=== PATIENT | male | born 2000 | race Caucasian/White ===

== ENCOUNTER 2019-10-11 10:03 | Inpatient (IN) ==
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
--- NOTE | 2019-10-10 08:23 | Anesthesiology Consultation ---
Date of Service October 10, 2019 Assessment & Plan (1) Encounter for pre-operative examination: CHECK CBC AM DOS Chart Review Chart Review: Acceptable Risk for Surgery and Patient NOT seen in Pre Admission Testing History Surgery Operation Date: 10/11/19 12:30 Proposed Procedures p Right Knee Lateral Tibial Plateau Fracture Open Reduction Internal Fixation - Gray Henry MD Height/Weight Height: 5 ft 10 in Weight: 72.575 kg Allergies Allergy/AdvReac Type Severity Reaction Status Date / Time No Known Allergies Allergy Mild Verified 10/09/19 16:25 Medications Home Medications Medication Instructions Recorded Confirmed Last Taken ascorbic acid (vitamin C) [Vitamin 250 mg PO DAILY 09/29/19 10/09/19 09/28/19 1 7:30 C] acetaminophen 500 mg PO Q6H PRN 10/09/19 10/09/19 Unknown ibuprofen 200 - 400 mg PO UD PRN 10/09/19 10/09/19 Unknown Past Medical History Medical History No known health problems Past Family History Family History Other No family history of adverse response to anesthesia No significant family history Past Surgical History Surgical History History of esophagogastroduodenoscopy (EGD) History of tonsillectomy Social History Smoking Status: Never smoker Hx Alcohol Use: No Hx Substance Use: No substance use type: does not use
[~2019-10-11 10:03] MED LIST: BUPIVACAINE 0.5 % 5 MG/1 ML PF 10ML VIAL ONE; BUPIVACAINE/EPINEPHRINE 0.25% 1:200,000 30 ML VIAL ONE; CEFAZOLIN 2000MG 2,000 MG/15 ML SYR IV SCH; DEXAMETHASONE SOD INJ 4 MG/ML VIAL ONE; LR 15ML/HR IV SCH
[2019-10-11 10:36] LABS: Hematocrit (blood only) 47.1 % (42-52); Hemoglobin 16.6 g/dL (14.0-18.0); Mean Corpuscular Hemoglobin 33.1 pg (25-34); Mean Corpuscular Volume 93.8 fL (80-100); Mean Platelet Volume 10.4 fL (7.4-10.4); Platelet Count 286 K/uL (130-400); RDW Coefficient of Variation 12.1 % (11.5-14.5); RDW Standard Deviation 40.8 fL (36.4-46.3); Red Blood Count 5.02 M/uL (4.7-6.1); White Blood Count 6.19 K/uL (4.8-10.8)
[2019-10-11 10:39] LABS: Mean Corpuscular Hgb Conc 35.2 g/dL (32-36)
[2019-10-11] MEDS ORDERED: LIDOCAINE HCL 2% 2 ML VIAL/AMP(20MG/ML) INFIL ONE (10:47)
[2019-10-11] MEDS ORDERED: fentaNYL citrate 100 MCG/2 ML VIAL ONE (10:47)
[2019-10-11] MEDS ORDERED: PROPOFOL IV EMULSION 10 MG/ML 20 ML VIAL IV ONE (10:47)
[2019-10-11] MEDS ORDERED: DEXAMETHASONE SOD INJ 4 MG/ML VIAL ONE (10:47)
[2019-10-11] MEDS ORDERED: ONDANSETRON INJ 2 MG/ML 2 ML VIAL ONE ×2 (10:47→17:35)
[2019-10-11] MEDS ORDERED: MIDAZOLAM HCL 1 MG/ML 2ML VIAL ONE ×2 (10:47→12:00)
--- NOTE | 2019-10-11 11:57 | History & Physical Bridge Note ---
Date of Service October 11, 2019 History & Physical Bridge Note I have examined the patient, reviewed the History & Physical and in the interval since the performance of the History & Physical I have noted the following changes of clinical significance: no changes noted
[2019-10-11] MEDS ORDERED: BUPIVACAINE/EPINEPHRINE 0.5% MPF 1:200,000 10 ML VIAL ONE (12:34)
[2019-10-11] MEDS ORDERED: PROMETHAZINE HCL 6.25 MG in SODIUM CHLORIDE 0.9% 50 ML IV PRN (12:44)
[2019-10-11] MEDS ORDERED: ATROPINE SULFATE 0.1 MG/ML 10ML SYR IV PRN (12:44)
[2019-10-11] MEDS ORDERED: ePHEDrine sulfate 50 MG/ML AMP IV PRN (12:44)
[2019-10-11] MEDS ORDERED: fentaNYL citrate 100 MCG/2 ML VIAL IV PRN (12:44)
[2019-10-11] MEDS ORDERED: ONDANSETRON INJ 2 MG/ML 2 ML VIAL IV PRN ×2 (12:44→17:05)
[2019-10-11] MEDS ORDERED: HYDROmorphone INJ 2 MG/ML SYR/VIAL IV PRN (12:44)
[2019-10-11] MEDS ORDERED: HYDROmorphone INJ 2 MG/ML SYR/VIAL ONE (12:57)
[2019-10-11] MEDS ORDERED: KETAMINE HCL INJ 50 MG/ML 10 ML VIAL ONE (12:58)
[2019-10-11] MEDS ORDERED: ACETAMINOPHEN 1000 MG/100 ML IV IV ONE (13:01)
[2019-10-11] MEDS ORDERED: DexMEDEtomidine HCL IV 100 MCG/ML VIAL ONE (13:01)
--- NOTE | 2019-10-11 14:38 | Fluoroscopy Report ---
FL knee RT 1 or 2V CLINICAL HISTORY: RT ORIF TIBIAL PLATEAU COMPARISON STUDY: 10/09/2019 FLUOROSCOPY TIME: 3 minutes 23 seconds NUMBER OF FLUOROSCOPIC IMAGES: 2 FINDINGS: Image intensifier support for open reduction internal fixation of the proximal tibia. Multi ple orthogonal screws as well as linear plate are present. IMPRESSION: Image intensifier support for open reduction internal fixation of the right knee. ACT 112: Negative or not required by law. The above report was generated using voice recognition software. It may contain grammatical, syntax or spelling errors. Electronically signed by: Humberto Granda M.D. 10/11/2019 2:37 PM
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
--- NOTE | 2019-10-11 15:47 | Anesthesiology Progress Note ---
Date of Service October 11, 2019 Anesthesia Post Procedure Vital Signs Vital Signs: Temp Pulse Resp BP Pulse Ox 10/11/19 15:45 61 12 135/90 100 10/11/19 15:35 36.8 C 94 H 12 141/94 H 100 10/11/19 15:25 110 H 12 132/85 100 10/11/19 15:15 70 10 L 133/74 99 10/11/19 15:05 74 10 L 138/61 98 10/11/19 14:56 36.4 C L 68 14 134/74 98 10/11/19 10:34 36.7 C 91 H 18 119/84 98 Pain Intensity Right Knee: Pain Intensity: 0 Transfer of Care Handoff Completed per policy Notes Mental Status: alert / awake / arousable and participated in evaluation Patient Amnestic to Procedure: Yes Nausea / Vomiting: adequately controlled Pain: adequately controlled Airway Patency, RR, SpO2: stable & adequate BP & HR: stable & adequate Hydration State: stable & adequate Anesthetic Complications: no major complications apparent
[2019-10-11] MEDS ORDERED: bisacodyL 10 MG SUPP PR PRN (17:05)
[2019-10-11] MEDS ORDERED: NALOXONE HCL 0.4 MG/1 ML VIAL/CARP IV PRN (17:05)
[2019-10-11] MEDS ORDERED: METOCLOPRAMIDE HCL INJ 5 MG/ML 2 ML VIAL IV PRN (17:05)
[2019-10-11] MEDS ORDERED: MAGNESIUM HYDROXIDE SUSP 30 ML UDC PO PRN (17:05)
[2019-10-11] MEDS ORDERED: HYDROmorphone INJ 0.5 MG/0.5 ML SYR IV PRN (17:05)
[2019-10-11] MEDS: SODIUM CHLORIDE 0.9% 1000ML 1,000 ML IV SCH (18:41)
[2019-10-11] MEDS ORDERED: SENNA 8.6 MG TAB PO SCH (21:00)
[2019-10-11] MEDS: CEFAZOLIN 1000MG 1,000 MG/7.5 ML SYR IV SCH (21:07)
[2019-10-11] MEDS: DOCUSATE SODIUM 100 MG CAP PO SCH (21:08)
[2019-10-11] MEDS: ASPIRIN 81 MG ECTAB PO SCH (21:08)
[2019-10-11] MEDS: ACETAMINOPHEN 500 MG TAB PO SCH (21:08)
[2019-10-11] MEDS: OXYCODONE HCL IR 5 MG TAB (IMMEDIATE RELEASE) PO PRN (23:37)
[2019-10-12] MEDS: SODIUM CHLORIDE 0.9% 1000ML 1,000 ML IV SCH (03:16)
[2019-10-12] MEDS: CEFAZOLIN 1000MG 1,000 MG/7.5 ML SYR IV SCH (04:51)
[2019-10-12] MEDS: ACETAMINOPHEN 500 MG TAB PO SCH (04:51)
[2019-10-12] MEDS: OXYCODONE HCL IR 5 MG TAB (IMMEDIATE RELEASE) PO PRN ×2 (04:55→09:08)
--- NOTE | 2019-10-12 07:02 | Orthopedic Progress Note ---
Date of Service October 12, 2019 Assessment & Plan (1) Closed fracture of lateral portion of right tibial plateau: POD#1 ORIF lateral tibial plateau fracture, right leg -Pain management - RLE, brace in extension/immobilizer at all times -DVT prophylaxis-ASA 81mg BID x 1 mo -D/C planning-home likely today. -AM labs are pending. Admission and Anticipated Discharge Date Admission Date: October 11, 2019 Anticipated date of discharge: 10/12/19 Subjective Patient is POD#1 ORIF lateral tibial plateau fracture. He was sleeping on arrival, easily awoken. Complaint of pain this morning, controlled. Hoping to go home today. No other complaints. Review of Systems Review of Systems: All systems reviewed & are unremarkable except as noted in HPI & below Physical Exam Physical Exam: Patient is resting in bed comfortably, AAOx3. Dressing is c/d/i, immobilizer in place. Toes are mobile, good doriflexion. Calves are soft and non tender. Distal pulses palpable. N/v status and sensation intact. Constitutional: well developed and well nourished; no acute distress Results & Data ([facility]) Vital Signs (Past 12 Hours) Vital Signs Temp Pulse Pulse Resp BP BP Pulse Ox 10/12/19 02:46 37.1 C 68 14 135/71 96 10/11/19 22:54 37.3 C 71 14 150/92 H 98 10/11/19 20:01 36.7 C 66 16 127/72 99 (1) Closed fracture of lateral portion of right tibial plateau Encounter type: subsequent encounter Fracture healing: with routine healing Qualified Code(s): S82.121D - Displaced fracture of lateral condyle of right tibia, subsequent encounter for closed fracture with routine healing
[2019-10-12 07:52] LABS: Hematocrit (blood only) 38.5 % (42-52); Hemoglobin 13.4 g/dL (14.0-18.0); Mean Corpuscular Hemoglobin 32.6 pg (25-34); Mean Corpuscular Hgb Conc 34.8 g/dL (32-36); Mean Corpuscular Volume 93.7 fL (80-100); Mean Platelet Volume 10.4 fL (7.4-10.4); Platelet Count 240 K/uL (130-400); RDW Coefficient of Variation 11.9 % (11.5-14.5); RDW Standard Deviation 40.5 fL (36.4-46.3); Red Blood Count 4.11 M/uL (4.7-6.1)
[2019-10-12 08:24] LABS: BUN Creatinine Ratio 11.1 (10-20); Blood Urea Nitrogen 8 mg/dl (7-18); Calcium 9.1 mg/dl (8.5-10.1); Carbon Dioxide 28 mmol/L (21-32); Chloride 105 mmol/L (98-107); Est GFR (African American) > 150.0; Est GFR (Non-African American) 133.7; Glucose 104 mg/dl (70-99); Potassium 3.6 mmol/L (3.5-5.1); Sodium 137 mmol/L (136-145)
[2019-10-12] MEDS ORDERED: MULTIVITAMIN TAB PO SCH (09:00)
[2019-10-12] MEDS ORDERED: ASCORBIC ACID 500 MG TAB PO SCH (09:00)
[2019-10-12] MEDS: ASPIRIN 81 MG ECTAB PO SCH (09:04)
[2019-10-12] MEDS: DOCUSATE SODIUM 100 MG CAP PO SCH (09:04)
--- NOTE | 2019-10-12 10:15 | Anesthesiology Progress Note ---
Date of Service October 12, 2019 Anesthesia Post Procedure Vital Signs Vital Signs: Temp Pulse Pulse Pulse Resp BP BP 10/12/19 07:38 36.8 C 57 L 16 117/71 10/12/19 02:46 37.1 C 68 14 135/71 10/11/19 22:54 37.3 C 71 14 150/92 H 10/11/19 20:01 36.7 C 66 16 127/72 10/11/19 17:56 36.4 C L 64 16 130/81 10/11/19 17:25 36.6 C 88 18 134/82 10/11/19 17:10 37.2 C 82 16 133/79 10/11/19 16:45 89 12 146/97 H 10/11/19 16:30 69 12 141/73 H 10/11/19 16:20 63 14 134/77 10/11/19 16:10 69 12 137/89 10/11/19 15:55 57 L 12 133/89 10/11/19 15:45 61 12 135/90 10/11/19 15:35 36.8 C 94 H 12 141/94 H 10/11/19 15:25 110 H 12 132/85 10/11/19 15:15 70 10 L 133/74 10/11/19 15:05 74 10 L 138/61 10/11/19 14:56 36.4 C L 68 14 134/74 10/11/19 10:34 36.7 C 91 H 18 119/84 Pulse Ox 10/12/19 07:38 99 10/12/19 02:46 96 10/11/19 22:54 98 10/11/19 20:01 99 10/11/19 17:56 99 10/11/19 17:25 99 10/11/19 17:10 99 10/11/19 16:45 99 10/11/19 16:30 98 10/11/19 16:20 100 10/11/19 16:10 100 10/11/19 15:55 100 10/11/19 15:45 100 10/11/19 15:35 100 10/11/19 15:25 100 10/11/19 15:15 99 10/11/19 15:05 98 10/11/19 14:56 98 10/11/19 10:34 98 Pain Intensity Right Knee: Pain Intensity: 4 Notes Mental Status: alert / awake / arousable and participated in evaluation Patient Amnestic to Procedure: Yes Nausea / Vomiting: improving with treatment (had emesis x 1 yesterday when on floor, resolved with Zofran) Pain: adequately controlled Airway Patency, RR, SpO2: stable & adequate BP & HR: stable & adequate Hydration State: stable & adequate Anesthetic Complications: no major complications apparent and Pt Satisfied with anesthetic care
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
== END 2019-10-12 11:30 | disposition home or self-care (01) | DRG 489 ==
LOC: ASU 10:03 → 3E 15:22